=== PATIENT | male | born 1970 | race Caucasian/White ===

== ENCOUNTER 2017-03-30 09:45 | Emergency (ER) | payer OTHER ==
--- NOTE | 2017-03-30 10:04 | CPEKG ---
Heart Rate: 127 RR Interval: 472 QRSD Interval: 78 QT Interval: 296 QTC Interval: 431 QRS [place]: 81 T Wave [place]: 24 EKG Severity - ABNORMAL ECG - EKG Impression: ATRIAL FIBRILLATION EKG Impression: VENTRICULAR PREMATURE COMPLEX Electronically Signed By: John Harvey 30-Mar-2017 14:47:44
[2017-03-30] MEDS ORDERED: DILTIAZEM 25 MG/5 ML VIAL IVP ONE ×2 (10:39→10:42)
--- NOTE | 2017-03-30 10:44 | EDPHY ---
H & P Stated Complaint: woke up last night with fast/heavy hr/elevated bp/sweating - Personal History Current Tetanus/Diphtheria Vaccine: Yes - Medical/Surgical History Hx Asthma: No Hx Chronic Respiratory Disease: No Hx Diabetes: No Hx Cardiac Disease: No Hx Renal Disease: No Hx Cirrhosis: No Hx Alcoholism: No Hx HIV/AIDS: No Hx Splenectomy or Spleen Trauma: No Other PMH: denies - Social History Smoking Status: Never smoked Constitutional: Initial Vital Signs Temperature (C) 36.8 C 03/30/17 09:50 Heart Rate 108 H 03/30/17 09:50 Respiratory Rate 20 03/30/17 09:50 Blood Pressure 145/94 H 03/30/17 09:50 O2 Sat (%) 96 03/30/17 09:50 O2 Delivery Mode Room Air Allergies/Adverse Reactions: No Known Allergies Allergy (Unverified 03/30/17 09:50) Home Medications: Medication Instructions Recorded Atenolol [Tenormin 25 mg (*)] 25 mg PO BID #30 tab 03/30/17 Medical Decision Making ED Course/Re-evaluation: CHIEF COMPLAINT: Sweating, high blood pressure HISTORY OF PRESENT ILLNESS: This patient is an obese 46 year old male complaining of diaphoresis and high blood pressure onset earlier today and abnormal heart rhythm waking him from sleep at 11pm last night. He felt normal last night prior to falling asleep but woke up with his heart racing around 11pm. He attributed this to caffeine or stress, and had no associated chest pain or pressure. He was able to go back to sleep, but states he generally does not sleep well. He went to work this morning , and did not feel poorly. He began sweating profusely, and coworkers recommended he present to the emergency department for evaluation. The patient mentions his father was cardioverted a couple months ago for an unspecified abnormal rhythm. He denies lightheadedness, nausea, shortness of breath, or other associated symptoms. REVIEW OF SYSTEMS: A 10 point review of systems was performed and is negative with the exception of the elements mentioned in the history of present illness. PHYSICAL EXAM: HR, BP, O2 Sat, RR. Temp noted General Appearance: Obese. Alert, well hydrated, appropriate, and non-toxic appearing. Head: Atraumatic without scalp tenderness or obvious injury Eyes: Pupils equal, round, reactive to light and accommodation, EOMI, no trauma , no injection. Ears: Clear bilaterally, no perforation, normal landmarks Nose: Atraumatic, no rhinorrhea, clear. Throat: There is no erythema or exudates, no lesions, normal tonsils, mucus membranes moist. Neck: Supple, nontender, no lymphadenopathy. Respiratory: No retractions, no distress, no wheezes, and no accessory muscle use. Lungs are clear to auscultation bilaterally. Cardiovascular: Initially in atrial fibrillation, spontaneously converted to sinus rhythm during exam. No murmurs, rubs, or gallops. Good capillary refill all extremities. Gastrointestinal: Abdomen is soft, nontender, non-distended, no masses, no rebound, no guarding, no peritoneal signs. Musculoskeletal: Normal active ROM of all extremities, atraumatic. Neurological: Alert, appropriate, and interactive. Nonfocal neuro exam. Skin: No rashes, good turgor, no nodules on palpation. Past medical history: Denies. Past surgical history: Noncontributory. Family history: Father cardioverted for abnormal rhythm. Social history: . Works at [employer]. Lives in [place], [place]. DIFFERENTIAL DIAGNOSIS: The differential diagnosis for the patient's narrow complex tachycardia included but was not limited to various causes of sinus tachycardia such as dehydration and medicines, SVT, atrial flutter, atrial fibrillation, pulmonary causes. MEDICAL DECISION MAKIN46 year old male presents with diaphoresis and rapid heart rate onset last night. Initial EKG shows atrial fibrillation. IV established. Plan for labs including CBC, BMP, Troponin, Mg, BNP. 10:46 The patient spontaneously converted to sinus rhythm after administration of 10mg IV Cardizem administration during my exam. Plan for second EKG to confirm sinus rhythm. Reassessed patient. He remains in sinus rhythm. Discussed triggers for atrial fibrillation including alcohol, stress, caffeine, electrolyte abnormalities. Plan to discharge home in good condition with prescription for Atenolol for control of heart rhythm until followup with cardiology. Return precautions discussed. The patient is comfortable with this plan. - Data Points Laboratory Results: Laboratory Results 03/30/17 10:10 03/30/17 10:10 03/30/17 03/30/17 10:10 10:10 WBC 11.46 10^3/uL H 10^3/uL (3.80-9.50) RBC 6.09 10^6/uL 10^6/uL (4.40-6.38) Hgb 17.2 g/dL g/dL (13.7-17.5) Hct 52.3 % H % (40.0-51.0) MCV 85.9 fL fL (81.5-99.8) MCH 28.2 pg pg (27.9-34.1) MCHC 32.9 g/dL g/dL (32.4-36.7) RDW 12.6 % % (11.5-15.2) Plt Count 351 10^3/uL 10^3/uL (150-400) MPV 9.7 fL fL (8.7-11.7) Neut % (Auto) 68.1 % % (39.3-74.2) Lymph % (Auto) 19.8 % % (15.0-45.0) [place] % (Auto) 7.8 % % (4.5-13.0) Eos % (Auto) 2.6 % % (0.6-7.6) Baso % (Auto) 0.8 % % (0.3-1.7) Nucleat RBC Rel Count 0.0 % % (0.0-0.2) Absolute Neuts (auto) 7.81 10^3/uL H 10^3/uL (1.70-6.50) Absolute Lymphs (auto) 2.27 10^3/uL 10^3/uL (1.00-3.00) Absolute Monos (auto) 0.89 10^3/uL H 10^3/uL (0.30-0.80) Absolute Eos (auto) 0.30 10^3/uL 10^3/uL (0.03-0.40) Absolute Basos (auto) 0.09 10^3/uL 10^3/uL (0.02-0.10) Absolute Nucleated RBC 0.00 10^3/uL 10^3/uL (0-0.01) Immature Gran % 0.9 % % (0.0-1.1) Immature Gran # 0.10 10^3/uL 10^3/uL (0.00-0.10) Sodium 143 mEq/L mEq/L (134-144) Potassium 4.6 mEq/L mEq/L (3.5-5.2) Chloride 106 mEq/L mEq/L (97-110) Carbon Dioxide 23 mEq/l mEq/l (22-31) Anion Gap 14 mEq/L mEq/L (8-16) BUN 18 mg/dL mg/dL (7-23) Creatinine 1.0 mg/dL mg/dL (0.7-1.3) Estimated GFR > 60 Glucose 90 mg/dL mg/dL (70-100) Calcium 9.9 mg/dL mg/dL (8.5-10.4) Magnesium 1.9 mg/dL mg/dL (1.6-2.3) Troponin I < 0.012 ng/mL ng/mL (0.000-0.034) NT-Pro-B Natriuret Pep 422 pg/mL H pg/mL (0-125) Medications Given: Discontinued Medications Aspirin (Aspirin) 324 mg PO EDNOW ONE Stop: 03/30/17 10:54 Last Admin: 03/30/17 10:56 Dose: 324 mg Diltiazem HCl (Cardizem 25 Mg/5 Ml Vial) 20 mg IVP EDNOW ONE Stop: 03/30/17 10:43 Last Admin: 03/30/17 10:43 Dose: 20 mg Departure - Departure Disposition: Home, Routine, Self-Care Clinical Impression: Atrial fibrillation Qualifiers: Atrial fibrillation type: unspecified Qualified Code(s): I48.91 - Unspecified atrial fibrillation Condition: Good Instructions: A-fib (Atrial Fibrillation) (ED) Additional Instructions: 1. Take your Atenolol as prescribed. 2. Follow up this week with cardiology for continued evaluation of your symptoms. Call as soon as possible for an appointment. We have referred you to our recreation facilities supervisor employee relations advisor. 3. Return to the emergency department for repeated occurrence of abnormal rhythm , chest pain or pressure, shortness of breath, or other worsening of condition. 4. Follow up with your primary care physician for discussion of possible sleep apnea. Referrals: MARIELLE CRUZ [Primary Care Provider] - As per Instructions Micah Luong MD [Medical Doctor] - As per Instructions Prescriptions: Atenolol [Tenormin 25 mg (*)] 25 mg PO BID #30 tab Report Scribed for: John Harvey Report Scribed by: Emy Espinal Date of Report: 03/30/17 Time of Report: 11:03
--- NOTE | 2017-03-30 10:52 | CPEKG ---
Heart Rate: 74 RR Interval: 811 P-R Interval: 164 QRSD Interval: 78 QT Interval: 352 QTC Interval: 391 P [place]: 39 QRS [place]: 35 T Wave [place]: 6 EKG Severity - NORMAL ECG - EKG Impression: SINUS RHYTHM Electronically Signed By: John Harvey 30-Mar-2017 14:47:44
[2017-03-30] MEDS ORDERED: ASPIRIN 81 MG CHEWABLE TAB PO ONE (10:53)
[2017-03-30 10:54] VITALS: O2SAT 98
[2017-03-30 11:01] LABS: % IMMATURE GRANULYOCYTES 0.9 % (0.0-1.1); ADD DIFF? NO; ADD MORPH? NO; ADD SCAN? NO; ATYPICAL LYMPHOCYTE FLAG 0 (0-99); FRAGMENT RBC FLAG 0 (0-99); HEMATOCRIT 52.3 % (40.0-51.0); HEMOGLOBIN 17.2 g/dL (13.7-17.5); LEFT SHIFT FLG 0 (0-99); LIPEMIA HEMOLYSIS FLAG 80 (0-99); MEAN CELL HEMOGLOBIN 28.2 pg (27.9-34.1); MEAN CELL HEMOGLOBIN CONCENTR. 32.9 g/dL (32.4-36.7); MEAN CELL VOLUME 85.9 fL (81.5-99.8); MEAN PLATELET VOLUME 9.7 fL (8.7-11.7); PLATELET CLUMPS FLAG 0 (0-99); PLATELET COUNT 351 10^3/uL (150-400); RED BLOOD CELL COUNT 6.09 10^6/uL (4.40-6.38); RED CELL DISTRIBUTION WIDTH 12.6 % (11.5-15.2)
[2017-03-30 11:06] LABS: ANION GAP 14 mEq/L (8-16); CALCIUM 9.9 mg/dL (8.5-10.4); CARBON DIOXIDE 23 mEq/l (22-31); CHLORIDE 106 mEq/L (97-110); GLOMERULAR FILTRATION RATE > 60; GLUCOSE 90 mg/dL (70-100); MAGNESIUM 1.9 mg/dL (1.6-2.3); POTASSIUM 4.6 mEq/L (3.5-5.2); SODIUM 143 mEq/L (134-144)
[2017-03-30 11:18] LABS: TROPONIN I < 0.012 ng/mL (0.000-0.034)
[2017-03-30 12:08] VITALS: BP 111/75; PULSE 75; RESP 16; TEMP 98.4
== END 2017-03-30 12:08 | disposition home or self-care (01) ==
DX: I48.91 Unspecified atrial fibrillation (principal)
CPT/HCPCS: 96374